=== PATIENT | male | born 1965 | race Caucasian/White ===

== ENCOUNTER 2017-01-08 04:20 | Emergency (ER) | payer MEDICAID ==
[~2017-01-08] VITALS: Ht 182.9 cm; Wt 70.9 kg
[~2017-01-08 04:20] MED LIST: ASPI-496 PO; ASPI-650 PO; ATOR20TA9 PO; BUSP15TA PO; CYCL-259 PO; DIVA250T14 PO; LEVO750T26 PO; MULT-750 PO; PHEN100C4 PO; TAMS0.4C2 PO; TRAM50TA2 PO; TRAZ100T15 PO; VENL75TA PO
[2017-01-08] MEDS ORDERED: LORazepam 2 MG/ML, 1ML IVPush ONE (05:00)
[2017-01-08] MEDS ORDERED: SODIUM CHLORIDE FLUSH 10ML SYR IVF ONE (05:00)
[2017-01-08] MEDS ORDERED: SODIUM CHLORIDE 0.9% 1,000ML IVBOLUS ONE (05:00)
[2017-01-08] MEDS ORDERED: LORazepam 2 MG/ML, 1ML ONE (05:09)
[2017-01-08 05:29] LABS: HEMATOCRIT 41.4 % (39.2-51.8); HEMOGLOBIN 14.2 g/dL (13.7-18.0); WHITE BLOOD COUNT 5.5 x10^3/uL (3.4-10)
[2017-01-08 05:36] LABS: BLOOD UREA NITROGEN 6 mg/dL (7-18)
[2017-01-08] MEDS ORDERED: PHENYTOIN SODIUM 50 MG/ML, 5ML IVPush ONE (06:00)
[2017-01-08] MEDS ORDERED: FILTER 0.22 MICRON IV ONE (06:30)
[2017-01-08] MEDS ORDERED: PHENYTOIN SODIUM 500 MG in SODIUM CHLORIDE 0.9% 100 ML IV ONE (06:30)
[2017-01-08 08:00] VITALS: BP 116/75
== END 2017-01-08 08:12 | disposition home or self-care (01) ==
LOC: ED 04:49
DX: G40.919 Epilepsy, unspecified, intractable, without status epilepticus (principal); Z86.73 Personal history of transient ischemic attack (TIA), and cerebral infarction without residual deficits
CPT/HCPCS: 36415; 70450; 71010; 80048; 80164; 80185; 82040; 85025; 93005; 96361; 96365; 96375; 99285; J1165; J2060; J7030

== ENCOUNTER 2017-03-18 21:07 | Emergency (ER) | payer MEDICAID ==
[~2017-03-18] VITALS: Ht 185.4 cm; Wt 70.0 kg
[2017-03-18] MEDS ORDERED: SODIUM CHLORIDE 0.9% 1,000ML IVBOLUS ONE (22:00)
[2017-03-18 22:01] LABS: ASPARTATE AMINO TRANSFERASE 158 U/L (15-37); BLOOD UREA NITROGEN 8 mg/dL (7-18)
[2017-03-18 22:21] LABS: DAU SCREEN DISCLAIMER
[2017-03-18 22:54] LABS: HEMATOCRIT 38.2 % (39.2-51.8); HEMOGLOBIN 13.3 g/dL (13.7-18.0)
[2017-03-18 23:07] LABS: DIFF TOTAL CELLS COUNTED 100 CELL DIFF
[2017-03-18 23:19] LABS: VERIFY COUNTS? YES
[2017-03-18 23:24] LABS: LARGE PLATELETS 1+
[2017-03-19] MEDS ORDERED: PHENYTOIN 100 MG CAPSULE ONE ×2 (00:26→00:31)
[2017-03-19] MEDS ORDERED: PHENYTOIN 100 MG CAPSULE PO ONE (01:00)
[2017-03-19 01:49] VITALS: BP 124/60
== END 2017-03-19 01:52 | disposition home or self-care (01) ==
LOC: ED 22:06
DX: G40.909 Epilepsy, unspecified, not intractable, without status epilepticus (principal); F17.200 Nicotine dependence, unspecified, uncomplicated
CPT/HCPCS: 36415; 70450; 71010; 80053; 80307; 81001; 82140; 85025; 99285; J7030; G0479

== ENCOUNTER 2020-03-07 18:47 | Emergency (ER) | payer MEDICAID ==
[~2020-03-07] VITALS: Ht 182.9 cm; Wt 74.0 kg
[~2020-03-07 18:47] MED LIST changes: +ATOR20TA37 PO; -ATOR20TA9 PO; +PHEN50TA PO; +TRAZ-175 PO; -TRAZ100T15 PO
[2020-03-07] MEDS ORDERED: DIPH,PERTUSS(ACELL),TET VAC/PF 0.5 ML IM-VACC ONE ×2 (19:12→19:30)
[2020-03-07] MEDS ORDERED: PHENYTOIN 100 MG CAPSULE ONE (19:13)
[2020-03-07] MEDS ORDERED: PHENYTOIN 100 MG CAPSULE PO ONE (19:30)
--- NOTE | 2020-03-07 19:35 | NUR ---
PT BIB EMS, PER EMS PT FOUND DOWN IN HIS ROOM BY GIRLFRIEND AFTER HAVING SEIZURE. PT HAD SOME LOC AND PT HAS HISTORY OF SEIZURES AND RAN OUT OF MEDICATIONS ABOUT A WEEKS AGO. PT A/O X4, SLIGHTLY TREMULOUS, STETS FEELING MUCH BETTER. PT HAS LACERATION ON LFT SIDE OF FACE NEXT TO EYE FROM FALLING DURING SEIZURE (PER PT AND EMS). PT MEDICATED PER EMAR, PT ON ALL MONITORS, SEIZURE PRECAUTIONS IN PLACE.
[2020-03-07 20:44] VITALS: BP 133/79
== END 2020-03-07 21:01 | disposition home or self-care (01) ==
LOC: ED 20:55
DX: S01.412A Laceration without foreign body of left cheek and temporomandibular area, initial encounter (principal); R55 Syncope and collapse; F17.210 Nicotine dependence, cigarettes, uncomplicated; Z86.73 Personal history of transient ischemic attack (TIA), and cerebral infarction without residual deficits; X58.XXXA Exposure to other specified factors, initial encounter; Y93.89 Activity, other specified; Y92.89 Other specified places as the place of occurrence of the external cause; Y99.8 Other external cause status; S09.90XA Unspecified injury of head, initial encounter
CPT/HCPCS: 12011; 90471; 90715; 99283; 99406